=== PATIENT | female | born 1990 | race Caucasian/White ===

== ENCOUNTER 2019-01-31 23:37 | Emergency (ER) | payer BC ==
[~2019-01-31] VITALS: Ht 152.4 cm; Wt 43.5 kg
[2019-02-01 00:50] VITALS: BP 101/68
[2019-02-01] MEDS ORDERED: IBUPROFEN 600 MG TABLET PO ONE ×2 (01:30→01:41)
--- NOTE | 2019-02-01 01:49 | NUR ---
Pt signed waiver, Radiology notified.
== END 2019-02-01 02:47 | disposition home or self-care (01) ==
LOC: ER 23:43
DX: R09.82 Postnasal drip (principal); R05 Cough; K21.9 Gastro-esophageal reflux disease without esophagitis; Z88.6 Allergy status to analgesic agent
CPT/HCPCS: 71045; 99283; A4606